=== PATIENT | male | born 1965 | race Caucasian/White ===

== ENCOUNTER 2019-11-17 12:19 | Emergency (ER) | payer OTHER, SELFPAY ==
--- NOTE | ~2019-11-17 | XR_ITS ---
EXAMINATION: XR chest 2V EXAM DATE: 11/17/2019 12:50 INDICATION: Nonproductive cough, wheezing. TECHNIQUE: Frontal and lateral projections of the chest obtained and reviewed. Comparison is made to prior examination from 07/02/2019. FINDINGS: The lungs are clear. There are no pleural effusions. The cardiomediastinal silhouette is within normal limits. There is no pneumothorax suspected. The bones and soft tissues are unremarkab le. IMPRESSION: Unremarkable chest x-ray exam. Reviewed, dictated and finalized at location B. [employer] INSPECTOR
[2019-11-17 12:33] VITALS: BP 134/78; PULSE 78; RESP 16; TEMP 37.1; O2SAT 97
--- NOTE | 2019-11-17 12:35 | ED.URI ---
HPI - URI/Sore Throat General Chief Complaint: Upper Respiratory Infection Stated Complaint: Cough,Fever Time Seen by Provider: 11/17/19 12:35 Source: patient and RN notes reviewed History of Present Illness HPI Narrative: Patient is a 54-year-old male that presents the urgent care with complaints of cough and fever. Patient states he was running a fever last night and he knows because he had chills . Patient states that he was seen approximately 2 weeks ago and it was confirmed that patient was placed on Augmentin and prednisone at that time. Patient states that he was much worse last night with the wheezing but he feels that something settling in his chest . Patient has not followed up with his primary for his ongoing symptoms. Patient states he does have a pulmonology appointment due to the sarcoidosis diagnosis in December. Patient states his symptoms worsen within the last 2 days. Patient is requesting a chest x-ray. No other acute complaints. No acute distress noted. Patient read the plan of care. Related Data Home Medications Medication Instructions Recorded Confirmed furosemide 40 mg PO DAILY 11/17/19 11/17/19 lactulose 10 g PO DAILY 11/17/19 11/17/19 levothyroxine 100 mcg PO DAILY 11/17/19 11/17/19 omeprazole 20 mg PO DAILY 11/17/19 11/17/19 Allergies Allergy/AdvReac Type Severity Reaction Status Date / Time No Known Allergies Allergy Verified 10/14/19 14:10 Review of Systems Review of Systems: Narrative: CONSTITUTIONAL: Reports a fever EYES: Denies visual changes, redness, or discharge. ENT: Denies rhinorrhea, congestion, sore throat, or otalgia. CARDIOVASCULAR: Denies chest pain, palpitations, or edema. RESPIRATORY: Reports of chest congestion, cough, wheezing, intermittent dyspnea GASTROINTESTINAL: Denies abdominal pain, nausea, vomiting, or diarrhea. GENITOURINARY: Denies dysuria or hematuria. SKIN: Denies rash or itching. MUSCULOSKELETAL: Denies back pain, joint pain, or myalgia. NEUROLOGIC: Denies headache, numbness, or weakness. [facility] Past Medical History Medical History (Updated 11/17/19 @ 12:59 by YANG Justice) Asthma Cirrhosis Sarcoidosis Family History Family History (Updated 06/16/14 @ 07:13 by DOCTOR UNKNOWN) Father Family history of multiple sclerosis Other Family history of malignant neoplasm of male breast Social History Social History Alcohol intake: never Gender identity (if verbalized by the patient): Male Comments At the time of my signature, I reviewed and agree with the nursing past medical, surgical, social, and family history. There is no relevant family history pertinent to the patient complaint. Exam Narrative: Exam Narrative: GENERAL: This is a well-nourished, well-developed patient, in no apparent distress. HEAD: normocephalic, atraumatic. EYES: PERRL. Sclera clear/white. Vision is grossly intact. EARS: External ears normal, auditory canals clear and without drainage, TMs normal without perforation. Hearing grossly intact. NOSE: External nose normal with no obvious nasal discharge, nares without redness, no rhinorrhea. THROAT: Mucous membranes moist, posterior pharynx clear. Mild postnasal drainage NECK: Neck supple CARDIOVASCULAR: Regular rate and rhythm without murmurs, gallops, or rubs. RESPIRATORY: Expiratory wheezes throughout, more notable in the left upper SKIN: warm, intact with no suspicious lesions or rash, good texture and turgor. NEURO: awake, alert, and oriented to person, place and time. There were no obvious focal neurologic abnormalities. EXTREMITIES: No clubbing, cyanosis, or edema. Course Vital Signs Vital signs: Vital Signs Temperature 98.8 F 11/17/19 12:33 Pulse Rate 78 11/17/19 12:33 Respiratory Rate 16 11/17/19 12:33 Blood Pressure 134/78 11/17/19 12:33 Pulse Oximetry 97 11/17/19 12:33 Temperature 98.8 F 11/17/19 12:33 Pulse Rate 78 11/17/19 12:33 Respiratory Rate 16 11/17/19 12:
== END 2019-11-17 13:04 | disposition home or self-care (01) ==
PROVIDERS: Emergency Provider Nurse Practitioner Family
DX: R06.2 Wheezing (principal); K74.60 Unspecified cirrhosis of liver; D86.9 Sarcoidosis, unspecified
CPT/HCPCS: 71046; 99213; G0463

== ENCOUNTER 2022-08-26 12:46 | Emergency (ER) | payer MEDICARE, MEDICAID, SELFPAY ==
--- NOTE | 2022-08-26 12:59 | ED.URI ---
HPI - URI/Sore Throat General Chief Complaint: Upper Respiratory Infection Stated Complaint: Cough, Headache Time Seen by Provider: 08/26/22 13:12 Source: patient, family (), RN notes reviewed and old records reviewed Mode of arrival: ambulatory Limitations: no limitations History of Present Illness HPI Narrative: 57-year-old male with a history of end-stage liver disease presents to the [facility] with sinus congestion, sinus pressure and increased cough. Patient states that he was just discharged from [facility] on Friday. Was having issues but was not prescribed anything. 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 reports that she was recently diagnosed with sinus infection and bronchitis. He is having the same symptoms. Patient denies any fevers. Denies any new chest pain, abdominal pain. States he gets paracentesis and is scheduled in the next week. Has tried multiple [id number] products with no relief. Related Data Allergies Allergy/AdvReac Type Severity Reaction Status Date / Time No Known Allergies Allergy Verified 08/26/22 12:53 Review of Systems Review of Systems: All systems reviewed & are unremarkable except as noted in HPI and below Constitutional: Constitutional: Reports no additional constitutional complaints, Denies chills and Denies fever(s) Eyes: Eyes: Reports no additional eye complaints ENT: Reports as per HPI and Reports nasal congestion Cardiovascular: Cardiovascular: Reports no additional cardiovascular complaints Respiratory: Respiratory: Reports as per HPI, Reports chest congestion, Reports cough and Reports wheezing Gastrointestinal: Gastrointestinal: Reports no additional gastrointestinal complaints Musculoskeletal: Musculoskeletal: Reports no additional musculoskeletal complaints Integumentary/Breasts: Skin/Breast: Reports system reviewed and no additional complaints, except as docu Neurologic: Reports system reviewed and no additional complaints, except as documented Psychiatric: Psychiatric: Reports no additional psychiatric complaints Allergic/Immunologic: Allergic/Immunologic: Reports no additional allergic/immunologic complaints [facility] Past Medical History Medical History (Updated 08/27/22 @ 08:53 by Beverly Cleveland APRN) Asthma Cirrhosis History of abdominal paracentesis Sarcoidosis Family History Family History Father Family history of multiple sclerosis Other Family history of malignant neoplasm of male breast Social History Social History Alcohol intake: never Gender identity (if verbalized by the patient): Male Comments At the time of my signature, I reviewed and agree with the nursing past medical, surgical, social, and family history. There is no relevant family history pertinent to the patient complaint. Exam Const: General: comfortable, no acute distress, well developed, alert, ill appearing chronically and well nourished Nutritional Appearance: well nourished and obese Orientation/consciousness: patient oriented x3 Limitations: no limitations HENMT: Head: normal to inspection Ears: external ears normal, TM's normal bilaterally and EAC's normal Face/Nose/Sinus: Normal external nose present and Nasal discharge present clear Face and sinus: sinus tenderness frontal and maxillary Mouth: Yes Normal oral and palatal mucosa present, Yes lip normal and Yes moist mucous membranes Throat: posterior oropharynx normal and uvula midline Eyes: General: appearance normal, both eyes and all related structures Conjunctivae: conjunctival abnormality (Jaundice) Pupils: Equal, round and reactive pupils present Neck: Neck: normal visual inspection, full ROM, no lymphadenopathy and no meningeal signs Chest: Chest palpation & inspection: normal inspection of the chest Resp: Effort & Inspection: normal res
[2022-08-26 13:06] VITALS: BP 122/66; PULSE 83; RESP 18; TEMP 36.8; O2SAT 99
== END 2022-08-26 13:33 | disposition home or self-care (01) ==
PROVIDERS: Emergency Provider Nurse Practitioner; PCP Internal Medicine
DX: J40 Bronchitis, not specified as acute or chronic (principal); D86.9 Sarcoidosis, unspecified; J45.909 Unspecified asthma, uncomplicated; K74.60 Unspecified cirrhosis of liver
CPT/HCPCS: 99213; G0463